=== PATIENT | female | born 1965 | race Caucasian/White ===

== ENCOUNTER 2017-10-28 08:27 | Outpatient (CLI) | payer OTHER ==
[2017-10-28] MEDS ORDERED: Gadobenate Dimeglumine 529 MG/1 ML (20ML VIAL) ONE (13:58)
== END 2017-10-28 08:28 | disposition home or self-care (01) ==
LOC: BICMRI 08:27
PROVIDERS: ATTEND Family Medicine
DX: Z87.39 Personal history of other diseases of the musculoskeletal system and connective tissue (principal); S83.242A Other tear of medial meniscus, current injury, left knee, initial encounter; M25.462 Effusion, left knee
CPT/HCPCS: A9579

== ENCOUNTER 2017-11-05 09:16 | Outpatient (CLI) | payer OTHER ==
--- NOTE | 2017-11-05 11:25 | MMO ---
BILATERAL SCREENING MAMMOGRAM: Date: 11/05/17 HISTORY: 6O-year-old female. Routine screening mammography. COMPARISON: 06/04/13. TECHNIQUE: CC and MLO views of both breasts are submitted for interpretation. This patient's mammogram was reviewed with the assistance of computer-aided detection. FINDINGS: The breasts are composed of scattered fibroglandular tissue. Bilaterally, no suspicious dominant mass , architectural distortion, or suspicious calcifications. There are benign-appearing calcifications i n the left and right breast. IMPRESSION: BIRADS 2: Benign Finding(s) RECOMMENDATION: Annual mammogram. POS: [facility]
== END 2017-11-05 09:17 | disposition home or self-care (01) ==
LOC: SCSMAMMO 09:16
PROVIDERS: ATTEND Family Medicine
DX: Z12.31 Encounter for screening mammogram for malignant neoplasm of breast (principal); Z80.3 Family history of malignant neoplasm of breast
CPT/HCPCS: 77067